=== PATIENT | male | born 1980 | race Caucasian/White ===

== ENCOUNTER 2017-08-23 20:37 | Emergency (ER) | payer BC ==
--- NOTE | 2017-08-23 20:38 | PDOC ---
History of Present Illness - General History Source: Patient, Old Records Exam Limitations: No Limitations - History of Present Illness Initial Comments: 08/23/17 20:51 The patient is a 36 year old male with no significant past medical history who presents to the emergency department today with a right index finger laceration. The patient states that he was washing a knife with a brillo pad when the knife cut through the brillo pad and sliced his finger. <Leonidas Crump - Last Filed: 08/23/17 20:51> <Mendy Pruett - Last Filed: 08/23/17 22:51> - General Chief Complaint: Laceration Stated Complaint: RH 2ND FINGER LAC Past History <Leonidas Crump - Last Filed: 08/23/17 20:51> <Mendy Pruett - Last Filed: 08/23/17 22:51> - Past Medical History Allergies/Adverse Reactions: Allergies Allergy/AdvReac Type Severity Reaction Status Date / Time No Known Allergies Allergy Unverified 08/23/17 20:38 Home Medications: Ambulatory Orders Bacitracin - [Bacitracin Topical Ointment -] 1 applic TP BID #10 g 08/23/17 Cephalexin [Keflex] 250 mg PO QID #28 capsule 08/23/17 Review of Systems - Review of Systems Able to Perform ROS?: Yes Comments:: 08/23/17 20:52 GENERAL/CONSTITUTIONAL: No fever or chills. No weakness. HEAD, EYES, EARS, NOSE AND THROAT: No change in vision. No ear pain or discharge. No sore throat. MUSCULOSKELETAL: (+) Right index finger laceration. No neck or back pain. SKIN: No rash NEUROLOGIC: No headache, vertigo, loss of consciousness, or change in strength/ sensation. <Leonidas Crump - Last Filed: 08/23/17 20:51> *Physical Exam - Vital Signs Last Vital Signs Temp Pulse Resp BP Pulse Ox 98.6 F 105 H 20 124/69 96 08/23/17 20:38 08/23/17 20:38 08/23/17 20:38 08/23/17 20:38 08/23/17 20:38 - Physical Exam Comments: 08/23/17 20:52 GENERAL: Awake, alert, and fully oriented, in no acute distress HEAD: No signs of trauma EYES: PERRLA, EOMI, sclera anicteric, conjunctiva clear ENT: Auricles normal inspection, hearing grossly normal, nares patent, oropharynx clear without exudates. Moist mucosa NECK: Normal ROM, supple, no lymphadenopathy, JVD, or masses LUNGS: Breath sounds equal, clear to auscultation bilaterally. No wheezes, and no crackles HEART: Regular rate and rhythm, normal S1 and S2, no murmurs, rubs or gallops ABDOMEN: Soft, nontender, normoactive bowel sounds. No guarding, no rebound. No masses EXTREMITIES: (+) Right index finger 4 cm laceration. Normal range of motion, no edema. No clubbing or cyanosis. No cords, erythema, or tenderness NEUROLOGICAL: Cranial nerves II through XII grossly intact. Normal speech, normal gait SKIN: Warm, Dry, normal turgor, no rashes or lesions noted. <Leonidas Crump - Last Filed: 08/23/17 20:51> Procedures - Laceration/Wound Repair Right Volar Finger 2nd digit Wound Length: to 2.5 cm Wound Explored: clean, no foreign body present Wound's Depth, Shape: superficial, into muscle, linear Irrigated w/ Saline: Yes Betadine Prep: Yes Anesthesia: 2% Lidocaine Wound Repaired With: Sutures Suture Size/Type: 4:0 Number of Sutures: 5 <Mendy Pruett - Last Filed: 08/23/17 22:51> Medical Decision Making - Medical Decision Making 08/23/17 22:47 Pt comes with a finger laceration. He was washing a knife in the kitchen sink and cut the volar aspect of his proximal dominant right index finger. Pt has a 1.25 inch laceration. XRAY shows no bone involvement. Pt has no FB; lac is linear. Repaired with 4.0 nylon 5 interrupted sutures. Keflex for abx coverage/prophylaxis. tdap given and good for 10 yrs. Pt will follow with PMD in 10 days for suture removal. WOund check sooner. Pt understands to return for redness/pain/swelling or streaking of red up his arm. <Mendy Pruett - Last Filed: 08/23/17 22:51> *DC/Admit/Observation/Transfer - Attestations Scribe Attestion: 08/23/17 20:52 Documentation prepared by Leonidas Crump, acting as neuropsychology medical consultant for Mendy Pruett MD. <Leonidas Crump - Last Filed: 08/23/17 20:51> - Discharge Dispostion Admit: No <Mendy Pruett - Last Filed: 08/23/17 22:51> Diagnosis at time of Disposition: Finger laceration - Discharge Dispostion Disposition: HOME Condition at time of disposition: Stable - Prescriptions Prescriptions: Bacitracin - [Bacitracin Topical Ointment -] 1 applic TP BID #10 g Cephalexin [Keflex] 250 mg PO QID #28 capsule - Patient Instructions Printed Discharge Instructions: DI for Laceration Repair, DI for Laceration Repair -- Finger
[2017-08-23] MEDS ORDERED: CEPHALEXIN MONOHYDRATE 500 MG CAPSULE (UD) PO ONE (20:39)
[2017-08-23] MEDS ORDERED: DIPHTH,PERTUSS(ACELL),TET VAC 0.5 ML VIAL IM ONE (20:39)
[2017-08-23] MEDS ORDERED: LIDOCAINE HCL 2% (50ML VIAL) INF ONE (20:39)
[2017-08-23 20:40] VITALS: BP 124/69; PULSE 105; TEMP 98.6; BMI 38.0
[2017-08-23] MEDS ORDERED: CEPHALEXIN MONOHYDRATE 500 MG CAPSULE (UD) ONE (20:46)
[2017-08-23] MEDS ORDERED: LIDOCAINE HCL 2% (20ML MULTI-DOSE VIAL) NR ONE (21:03)
[2017-08-23] MEDS ORDERED: BACITRACIN 15 GM TUBE TOPICAL OINTMENT TP ONE (21:38)
== END 2017-08-23 21:58 | disposition home or self-care (01) ==
LOC: FER 20:37
PROC: 0HQFXZZ Repair Right Hand Skin, External Approach (ICD-10-PCS; principal; 2017-08-23)
DX: S61.210A Laceration without foreign body of right index finger without damage to nail, initial encounter (principal); R05 Cough; W26.0XXA Contact with knife, initial encounter; Y93.G1 Activity, food preparation and clean up; Y92.9 Unspecified place or not applicable
CPT/HCPCS: 73140-TC-RT; 99282-25